=== PATIENT | male | born 1995 | race American Indian/Alaskan Native ===

== ENCOUNTER 2017-08-26 00:30 | Emergency (ER) | payer SELFPAY ==
[2017-08-26] MEDS ORDERED: NACL 0.9% IR ONE (06:25)
[2017-08-26] MEDS ORDERED: MARCAINE 0.5% INFILTRATI ONE (06:25)
[2017-08-26] MEDS ORDERED: MOTRIN PO ONE (06:26)
--- NOTE | 2017-08-26 06:30 | Emergency Department Report ---
Chief Complaint: Laceration/Recheck/Suture Stated Complaint: KNEE INJURY Time Seen by Provider: 08/26/17 06:24 - HPI History of Present Illness: Patient here reports that he was chasing after his dog and fell and obtained a laceration to his right knee at about 11 PM. He is having pain 5 out of 10. Pain is worse with moving his knee better with rest. Denies any numbness or tingling. Report laceration was bleeding and he put rashes decide. He denies being bitten by dog. Patient said he is in college and he got is vaccinations in 2015. He said he fell in the dirt and hit his right knee. - ROS Review of Systems: All systems are negative unless stated in HPI above - Exam Vital Signs: Vital Signs 08/26/17 08/26/17 00:36 00:38 Temperature 98.4 F 98.4 F Pulse Rate 80 77 Respiratory 18 18 Rate Blood Pressure 132/85 132/85 O2 Sat by Pulse 97 98 Oximetry Physical Exam: Gen.: This is a 22-year-old male well-nourished well-developed in no acute distress. Extremity: Patient would full range of motion to all extremities but reports pain with flexion and extension of right knee due to injury. No clubbing, cyanosis. +2 pulses in all extremities. No neurovascular compromise. Skin: Right knee, anteriorly with linear laceration. No bone visualized. MSE screening note: Focused history and physical exam performed. Due to findings the following was ordered:see mdm ED Medical Decision Making - Medical Decision Making MDM: Patient screened by provider in triage area. Appropriate protocol initiated and patient to be seen I provider. ED Disposition for MSE Condition: Stable Referrals: PRIMARY CARE, [Primary Care Provider] - 3-5 Days
--- NOTE | 2017-08-26 07:28 | Emergency Department Report ---
- General Chief Complaint: Laceration/Recheck/Suture Stated Complaint: KNEE INJURY Time Seen by Provider: 08/26/17 06:24 Source: patient Mode of arrival: Ambulatory Limitations: No Limitations - History of Present Illness Initial Comments: This is a 22-year-old male nontoxic, well nourished in appearance, no acute signs of distress presents to the ED complaining of lacerations to his right knee status post fall yesterday around 11 PM. Patient is complaining of pain radiating 5 out of 10 that is described as aching. Patient denies any numbness , tailing, fever, chills, nausea, vomiting, chest pain shortness of breath. Patient state he is up to date with tetanus in 2015 due to go to college. Patient state he was running after his dog and tripped and caused a laceration to his right knee. Patient denies being bitten by a dog. Bleeding is under control. Patient denies any headache or other trauma. Denies any allergies or past medical history besides asthma. -: Last night Extremity Location: Right: Knee Place: home Patient Tetanus UTD: Yes (2014) Context: accidental Associated Symptoms: pain. denies: loss of feeling/numbness, suspect foreign body present, unable to move injured part, weakness followed by dizziness, nausea/vomiting, fever - Related Data Previous Rx's Medication Instructions Recorded Last Taken Type Montelukast [Singulair] 10 mg PO QPM #30 tablet 08/15/14 Unknown Rx Albuterol Sulfate [Ventolin HFA] 2 puff IH Q4H PRN #1 hfa.aer.ad 09/13/14 Unknown Rx Azithromycin [Zithromax Z-MCKAY] 250 mg PO DAILY #1 pkg 09/13/14 Unknown Rx Prednisone [predniSONE 10 mg 10 mg PO .TAPER #1 tab.ds.pk 09/13/14 Unknown Rx (6-Day Pack, 21 Tabs)] Ibuprofen [Motrin 600 MG tab] 600 mg PO Q8H PRN #30 tablet 08/26/17 Unknown Rx Sulfamethoxazole/Trimethoprim 1 each PO BID #14 tablet 08/26/17 Unknown Rx [Bactrim DS TAB] Allergies Allergy/AdvReac Type Severity Reaction Status Date / Time No Known Allergies Allergy Verified 09/13/14 08:23 ED Review of Systems ROS: Stated complaint: KNEE INJURY Other details as noted in HPI Constitutional: denies: chills, fever Eyes: denies: eye pain, eye discharge, vision change ENT: denies: ear pain, throat pain Respiratory: denies: cough, shortness of breath, wheezing Cardiovascular: denies: chest pain, palpitations Endocrine: no symptoms reported Gastrointestinal: denies: abdominal pain, nausea, diarrhea Genitourinary: denies: urgency, dysuria Musculoskeletal: denies: back pain, joint swelling, arthralgia Skin: denies: rash, lesions Neurological: denies: headache, weakness, paresthesias Psychiatric: denies: anxiety, depression Hematological/Lymphatic: denies: easy bleeding, easy bruising ED Past Medical Hx - Past Medical History Previous Medical History?: Yes Hx Asthma: Yes - Surgical History Past Surgical History?: Yes Additional Surgical History: hernia repair - Social History Smoking Status: Never Smoker Substance Use Type: None - Medications Home Medications: Home Medications Medication Instructions Recorded Confirmed Last Taken Type Montelukast [Singulair] 10 mg PO QPM #30 tablet 08/15/14 Unknown Rx Albuterol Sulfate [Ventolin HFA] 2 puff IH Q4H PRN #1 hfa.aer.ad 09/13/14 Unknown Rx Azithromycin [Zithromax Z-MCKAY] 250 mg PO DAILY #1 pkg 09/13/14 Unknown Rx Prednisone [predniSONE 10 mg 10 mg PO .TAPER #1 tab.ds.pk 09/13/14 Unknown Rx (6-Day Pack, 21 Tabs)] Ibuprofen [Motrin 600 MG tab] 600 mg PO Q8H PRN #30 tablet 08/26/17 Unknown Rx Sulfamethoxazole/Trimethoprim 1 each PO BID #14 tablet 08/26/17 Unknown Rx [Bactrim DS TAB] ED Physical Exam - General Limitations: No Limitations General appearance: alert, in no apparent distress - Head Head exam: Present: atraumatic, normocephalic, normal inspection - Eye Eye exam: Present: normal appearance, PERRL, EOMI. Absent: scleral icterus, conjunctival injection, nystagmus, periorbital swelling, periorbital tenderness Pupils: Present: normal accommodation - ENT ENT exam: Present: normal exam, normal orophraynx, mucous membranes moist, TM's normal bilaterally, normal external ear exam - Neck Neck exam: Present: normal inspection, full ROM. Absent: tenderness, meningismus, lymphadenopathy, thyromegaly - Respiratory Respiratory exam: Present: normal lung sounds bilaterally. Absent: respiratory distress, wheezes, rales, rhonchi, stridor, chest wall tenderness, accessory muscle use, decreased breath sounds, prolonged expiratory - Cardiovascular Cardiovascular Exam: Present: regular rate, normal rhythm, normal heart sounds. Absent: bradycardia, tachycardia, irregular rhythm, systolic murmur, diastolic murmur, rubs, gallop - GI/Abdominal GI/Abdominal exam: Present: soft, normal bowel sounds. Absent: tenderness, guarding, rebound, rigid, diminished bowel sounds - Rectal Rectal exam: Present: deferred - Extremities Exam Extremities exam: Present: normal inspection, full ROM, normal capillary refill. Absent: tenderness, pedal edema, joint swelling, calf tenderness - Expanded Lower Extremity Exam Right Hip exam: Present: normal inspection, full ROM Upper Leg exam: Present: normal inspection, full ROM Knee exam: Present: normal inspection, full ROM, tenderness, laceration (linear 3 cm superficial laceration), full knee extension. Absent: swelling, abrasion, ecchymosis, deformity, crepidus, dislocation, erythema, effusion, pain w/ pronation/supination, posterior draw sign, pain/laxity with valgus, pain/laxity with varus Lower Leg exam: Present: normal inspection, full ROM Ankle exam: Present: normal inspection, full ROM Foot/Toe exam: Present: normal inspection, full ROM Neuro vascular tendon exam: Present: no vascular compromise. Absent: pulse deficit, abnormal cap refill, motor deficit, sensory deficit, tendon deficit, extremity cold to touch, pallor, abnormal 2-point discrimination, decreased fine /light touch, foot drop, peroneal nerve deficit, significant pain with passive ROM of distal joint Gait: Positive: observed and normal - Back Exam Back exam: Present: normal inspection, full ROM. Absent: tenderness, CVA tenderness (R), CVA tenderness (L), muscle spasm, paraspinal tenderness, vertebral tenderness, rash noted - Neurological Exam Neurological exam: Present: alert, oriented X3, CN II-XII intact, normal gait, reflexes normal - Psychiatric Psychiatric exam: Present: normal affect, normal mood - Skin Skin exam: Present: warm, dry, intact, normal color. Absent: rash ED Course Vital Signs 08/26/17 08/26/17 00:36 00:38 Temperature 98.4 F 98.4 F Pulse Rate 80 77 Respiratory 18 18 Rate Blood Pressure 132/85 132/85 O2 Sat by Pulse 97 98 Oximetry - Reevaluation(s) Reevaluation #1: 08/26/17 07:29 Patient is speaking in full sentences with no signs of distress noted. - Laceration /Wound Repair Right Knee Wound Location: lower extremity (right knee) Wound Length (cm): 3 Wound's Depth, Shape: superficial, linear Wound Explored: clean Irrigated w/ Saline (ccs): 40 Betadine Prep?: Yes Anesthesia: 0.5% Sensorcaine Volume Anesthetic (ccs): 6 Wound Debrided: minimal Wound Repaired With: sutures Suture Size/Type: 5:0 Number of Sutures: 6 Layer Closure?: No Progress: Under sterile field, I used Betadine to clean the area. I then used 40 mL of normal saline to flush the area. I then used 0.5% Marcaine plain and injected 6 mL to the wound. I then used a 5-0 Prolene to suture the laceration. Number of stitches 6. I then applied a sterile 4 x 4 with tape. Minimal bleeding noted but is under control. Patient tolerated procedure well with no signs of distress. ED Medical Decision Making - Radiology Data Radiology results: report reviewed interpreted by me: Dictated by radiologist Normal examination - Medical Decision Making 22-year-old male that presents with a 3 cm superficial laceration to his right knee. Patient states he is the vaccine. Patient pallor procedure well with no signs of any distress. Has been cleaned with soap and water and irrigated with normal saline. Procedure done sterilely. Bleeding under control. Patient was instructed to return and 7-10 days for suture removal. X-ray has been obtained and dictated by radiologist. Impression of normal examination, no fractures, dislocation or foreign body noted. Patient received Bactrim at discharge. Patient was educated on wound care. A sterile dressing has been applied. Patient was instructed to follow-up with a primary care doctor in 3-5 days or if symptoms worsen and continue return to emergency room as soon as possible possible. Patient is hemodynamically stable with stable vital signs. Patient states he is feeling better. At time time of discharge, the patient does not seem toxic or ill in appearance. No acute signs of distress noted. Patient agrees to discharge treatment plan of care. No further questions noted by the patient. Critical care attestation.: If time is entered above; I have spent that time in minutes in the direct care of this critically ill patient, excluding procedure time. ED Disposition Clinical Impression: Laceration Disposition: DC-01 TO HOME OR SELFCARE Is pt being admited?: No Does the pt Need Aspirin: No Condition: Stable Instructions: Suture Care (ED), Laceration (ED), Acute Wound Care (ED), Sulfamethoxazole/Trimethoprim (By mouth), Ibuprofen (By mouth) Additional Instructions: Return in 7-10 days for suture removal. Follow-up with a primary care doctor in 3-5 days or if symptoms worsen and continue return to emergency room as soon as possible possible. Take full course of antibiotics was prescribed. Prescriptions: Ibuprofen [Motrin 600 MG tab] 600 mg PO Q8H PRN #30 tablet PRN Reason: Pain Sulfamethoxazole/Trimethoprim [Bactrim DS TAB] 1 each PO BID #14 tablet Referrals: PRIMARY MD EMILIANO [Primary Care Provider] - 3-5 Days NADIYA WILKS MD [Staff Physician] - 3-5 Days [facility] [Outside] - 3-5 Days [facility] [Outside] - 3-5 Days Forms: Work/School Release Form(ED)
--- NOTE | 2017-08-26 08:28 | XRay Report ---
RIGHT KNEE RADIOGRAPHS INDICATION: Fall with right knee pain and laceration. COMPARISON: None similar. FINDINGS: AP, lateral and oblique right knee radiographs demonstrate intact bony articulation and appearance. Normal soft tissues without evidence of suprapatellar effusion. CONCLUSION: Normal right knee radiographs. Thank you for the opportunity to participate in this patient's care.
[2017-08-26] MEDS ORDERED: TRIPLE ANTIBIOTIC TP ONE (08:47)
[2017-08-26 11:46] VITALS: BP 132/85
== END 2017-08-26 08:55 | disposition home or self-care (01) ==
LOC: ED 00:30
DX: S81.011A Laceration without foreign body, right knee, initial encounter (principal); W18.30XA Fall on same level, unspecified, initial encounter; Y93.89 Activity, other specified; Y92.89 Other specified places as the place of occurrence of the external cause; Y99.8 Other external cause status
CPT/HCPCS: 99283; A6250